=== PATIENT | male | born 1980 | race Caucasian/White ===

== ENCOUNTER 2017-10-25 20:28 | Emergency (ER) | payer MEDICAID ==
[~2017-10-25] VITALS: Ht 170.2 cm; Wt 95.3 kg
[2017-10-25 21:00] LABS: URINE BILIRUBIN NEGATIVE (Negative); URINE BLOOD NEGATIVE (Negative); URINE CLARITY CLEAR; URINE COLOR YELLOW; URINE GLUCOSE-RANDOM NEGATIVE (Negative); URINE KETONES NEGATIVE (Negative); URINE LEUKOCYTES-REFLEX NEGATIVE (Negative); URINE NITRITE-REFLEX NEGATIVE (Negative); URINE PROTEIN NEGATIVE (Negative); URINE SPECIFIC GRAVITY >= 1.030 (1.005-1.030); URINE UROBILINOGEN 0.2 E.U./dl (0.2-1.0)
[2017-10-25 21:07] LABS: HEMATOCRIT 42.1 % (42.0-52.0); HEMOGLOBIN 14.2 gm/dL (14.0-18.0); MCHC 33.7 g/dL (28.0-37.0); MCV 85.9 fL (80.0-100.0); MPV 7.2 fl. (7.2-11.1); NUCLEATED RBCS 0 /100WBC; PLATELET COUNT* 314 thou/uL (150-400); RDW-CV 13.9 % (10.5-14.5)
[2017-10-25 21:14] LABS: CALCIUM 8.8 mg/dL (8.5-10.1); CREATININE 1.1 mg/dL (0.6-1.3); POTASSIUM 3.8 mmol/L (3.5-5.1)
[2017-10-25 21:19] LABS: ALBUMIN 3.7 g/dL (3.4-5.0); TOTAL BILIRUBIN 0.3 mg/dL (<0.1-1.0); TOTAL PROTEIN 7.8 g/dL (6.4-8.2)
[2017-10-25 22:10] LABS: ABSOLUTE LYMPHOCYTES 0.6 thou/uL (0.8-5.3); ABSOLUTE MONOCYTES 0.7 thou/uL (0.0-1.2); ABSOLUTE NEUTROPHILS 8.7 thou/uL (1.6-8.1); ANISOCYTOSIS Occasional; PLATELET ESTIMATE ADEQUATE; TOXIC GRANULATION 1+
[2017-10-25] MEDS ORDERED: TRAMADOL 50 MG50 MG PO (22:49)
[2017-10-25] MEDS ORDERED: CIPRO500 M1 PO (22:49)
[2017-10-25] MEDS ORDERED: ONDANSETRON HCL4 M2 PO (22:49)
[2017-10-25 23:11] VITALS: BP 117/63
== END 2017-10-25 23:12 | disposition home or self-care (01) ==
LOC: M.ERS 20:28
PROVIDERS: Nurse Practitioner Family
DX: R10.30 Lower abdominal pain, unspecified (principal); N50.812 Left testicular pain; N50.811 Right testicular pain

== ENCOUNTER 2018-09-13 04:38 | Emergency (ER) | payer MEDICAID ==
[~2018-09-13] VITALS: Ht 170.2 cm; Wt 97.5 kg
[~2018-09-13 04:38] MED LIST: CIPRO500 M1 PO; ONDANSETRON HCL4 M2 PO; TRAMADOL 50 MG50 MG PO
[2018-09-13 05:27] LABS: URINE BILIRUBIN NEGATIVE (Negative); URINE BLOOD NEGATIVE (Negative); URINE CLARITY CLEAR; URINE COLOR YELLOW; URINE GLUCOSE-RANDOM NEGATIVE (Negative); URINE KETONES NEGATIVE (Negative); URINE LEUKOCYTES-REFLEX NEGATIVE (Negative); URINE NITRITE-REFLEX NEGATIVE (Negative); URINE PROTEIN NEGATIVE (Negative); URINE SPECIFIC GRAVITY 1.025 (1.005-1.030); URINE UROBILINOGEN 0.2 E.U./dl (0.2-1.0)
[2018-09-13] MEDS ORDERED: FAMCICLOVIR250 MG PO (05:30)
[2018-09-13] MEDS ORDERED: DOXYCYCLINE 10100 MG PO (05:30)
[2018-09-13 06:05] VITALS: BP 150/79
== END 2018-09-13 06:05 | disposition home or self-care (01) ==
LOC: M.ERS 04:38
PROVIDERS: Emergency Medicine Emergency Medical Services
DX: A60.01 Herpesviral infection of penis (principal); F17.210 Nicotine dependence, cigarettes, uncomplicated

== ENCOUNTER 2019-08-28 04:29 | Inpatient (IN) | payer MEDICAID ==
[~2019-08-28] VITALS: Ht 172.7 cm; Wt 116.8 kg
[~2019-08-28 04:29] MED LIST changes: +DOXYCYCLINE 10100 MG PO; +FAMCICLOVIR250 MG PO
[2019-08-28 04:36] VITALS: BP 151/86
[2019-08-28 04:51] LABS: URINE CLARITY CLEAR; URINE COLOR ORANGE
[2019-08-28 04:52] LABS: URINE GLUCOSE-RANDOM ND (Negative); URINE PROTEIN ND (Negative); URINE REDUCING SUBSTANCE NEGATIVE (Negative); URINE SPECIFIC GRAVITY 1.015 (1.005-1.030)
[2019-08-28 04:53] LABS: ACETEST (KETONE CONFIRMATORY) Negative (Negative); ICTOTEST (BILI CONFIRMATORY) Negative (Negative); URINE BILIRUBIN ND (Negative); URINE BLOOD ND (Negative); URINE KETONES ND (Negative); URINE LEUKOCYTES-REFLEX ND (Negative); URINE NITRITE-REFLEX ND (Negative); URINE UROBILINOGEN ND E.U./dl (0.2-1.0)
[2019-08-28 05:14] LABS: CASTS None Seen /LPF (None Seen); CRYSTALS None Seen /LPF (None Seen); MUCUS 4-6 Moderate strn/LPF (None Seen); SQUAMOUS 0-3 Few /LPF (0-3); URINE WBC-REFLEX 6-15 Few /HPF (0-5)
[2019-08-28 05:23] LABS: ABSOLUTE BASOPHILS 0.1 thou/uL (0.0-0.2); ABSOLUTE LYMPHOCYTES 1.1 thou/uL (0.8-5.3); ABSOLUTE MONOCYTES 1.2 thou/uL (0.0-1.2); ABSOLUTE NEUTROPHILS 11.8 thou/uL (1.6-8.1); BASOPHILS 0.4 %; EOSINOPHILS 0.2 %; HEMATOCRIT 40.7 % (42.0-52.0); HEMOGLOBIN 13.4 gm/dL (14.0-18.0); LYMPHOCYTES 7.9 %; MCH 28.4 pg (26.0-34.0); MONOCYTES 8.6 %; NUCLEATED RBCS 0 /100WBC; PLATELET COUNT* 262 thou/uL (150-400); POLYS 82.9 %; RBC 4.73 mil/uL (4.50-6.00); RDW-CV 14.2 % (10.5-14.5); WBC 14.2 thou/uL (4.0-11.0)
[2019-08-28 05:39] LABS: CALCIUM 8.4 mg/dL (8.5-10.1); CREATININE 1.2 mg/dL (0.6-1.3); POTASSIUM 3.8 mmol/L (3.5-5.1)
[2019-08-28 05:40] LABS: ALBUMIN 3.1 g/dL (3.4-5.0); TOTAL BILIRUBIN 0.5 mg/dL (<0.1-1.0); TOTAL PROTEIN 7.6 g/dL (6.4-8.2)
[2019-08-28 06:07] LABS: AMP/METHAMP POSITIVE (Negative); BARBITURATES Negative (Negative); BENZODIAZEPINES Negative (Negative); COCAINE Negative (Negative); METHADONE Negative (Negative); OPIATES Negative (Negative); PCP Negative (Negative); THC POSITIVE (Negative)
--- NOTE | 2019-08-28 09:06 | NUR ---
DURING ADMISSIONS ASSESSMENT PT HAD LARGE KNIFE IN HIS BAG. SECURITY CALLED TO SECURE KNIFE UNTIL DC
[2019-08-28 09:36] VITALS: BP 131/74
[2019-08-28 12:00] VITALS: BP 131/74
[2019-08-28 13:16] LABS: CHOLESTEROL 135 mg/dL (<200); HDL CHOLESTEROL 54 mg/dL (>40); LDL CHOLESTEROL 74 mg/dL (<100); TC:HDL 2.5 Ratio (Not establshd); TRIGLYCERIDE 37 mg/dL (<150); VLDL 7 mg/dL (<40)
[2019-08-28 13:17] LABS: SERUM ASSESSMENT Clear
[2019-08-28 16:39] VITALS: BP 114/68
--- NOTE | 2019-08-28 16:55 | NUR ---
PT UP FROM ED THIS AM .PT REPORTS INTERMITTENT RIB AND CHEST PAIN RELIEVED BY PAIN MEDS. IVF INFUSING. STACH ON MONITOR
[2019-08-28 19:50] VITALS: BP 116/71
[2019-08-29] VITALS: BP 107/63
[2019-08-29 03:05] LABS: GLYCOHEMOGLOBIN (HGB A1C) 5.8 % (4.8-5.6)
[2019-08-29 04:00] VITALS: BP 139/71
[2019-08-29 05:16] LABS: ABSOLUTE BASOPHILS 0.1 thou/uL (0.0-0.2); ABSOLUTE EOSINOPHILS 0.1 thou/uL (0.0-0.7); ABSOLUTE LYMPHOCYTES 0.9 thou/uL (0.8-5.3); ABSOLUTE NEUTROPHILS 9.5 thou/uL (1.6-8.1); BASOPHILS 0.5 %; EOSINOPHILS 0.4 %; HEMATOCRIT 37.9 % (42.0-52.0); HEMOGLOBIN 12.6 gm/dL (14.0-18.0); MCH 28.4 pg (26.0-34.0); MCHC 33.2 g/dL (28.0-37.0); MCV 85.4 fL (80.0-100.0); MONOCYTES 8.5 %; MPV 8.4 fl. (7.2-11.1); NUCLEATED RBCS 0 /100WBC; PLATELET COUNT* 234 thou/uL (150-400); POLYS 82.6 %; RBC 4.44 mil/uL (4.50-6.00); RDW-CV 14.2 % (10.5-14.5); WBC 11.5 thou/uL (4.0-11.0)
[2019-08-29 05:34] LABS: ALBUMIN 2.4 g/dL (3.4-5.0); CALCIUM 8.3 mg/dL (8.5-10.1); CREATININE 0.9 mg/dL (0.6-1.3); POTASSIUM 3.8 mmol/L (3.5-5.1); TOTAL BILIRUBIN 0.6 mg/dL (<0.1-1.0); TOTAL PROTEIN 6.7 g/dL (6.4-8.2)
--- NOTE | 2019-08-29 06:54 | NUR ---
RECEIVED REPORT AND ASSUMED CARE AT 1900. VSS. CARDIAC MONITORING IN PLACE. PT REPORTS PAIN, PRN MEDICATION PER EMAR. ASSESSMENT COMPLETED CHARTED. PT UP AD BRAD IN ROOM, RA. THROUGH NIGHT 02 SAT MID-HIGH 80'S. PT NOW ON 2L NC. BED LOCKED IN LOWEST POSITION, CALL LIGHT WITHIN REACH. HOURLY ROUNDING COMPLETED AND ALL NEEDS MET
[2019-08-29 08:00] VITALS: BP 144/87
[2019-08-29 11:55] VITALS: BP 115/67
--- NOTE | 2019-08-29 14:09 | NUR ---
ATTEMPTED TO MEET WITH PT, WAS SLEEPING. WILL TRY AGAIN
[2019-08-29 16:15] VITALS: BP 128/69
--- NOTE | 2019-08-29 17:02 | EKG ---
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 08/29/19 1702 [id number] Eric Wild MD, FACC /EPI
--- NOTE | 2019-08-29 17:41 | NUR ---
PT UP IN ROOM WITH STEADY GAIT. PT AFEBRILE. IVF INFUSING. PT REPORTS MARIN AND CHEST PAIN WITH COUGH. PT REPORTS FEELING BETTER TODAY. TOLERATING PO WELL.
[2019-08-29 19:30] VITALS: BP 140/75
--- NOTE | 2019-08-29 23:09 | NUR ---
ASSESSMENT DOCUMENTED. IV PATENT. PT REPORTED TO RT THAT HE WAS LEAVING. RT FOUND THIS NURSE. TALKED TO PT, PT STATED THAT HE WAS SICK OF BEING IN THE HOSPITAL AND WAS GOING TO LEAVE. PT EDUCATED ON RISKS OF LEAVING AMA, PT STATED UNDERSTANDING. AMA PAPER SIGNED. CHARGE NURSE AND NURSING SHOE CUTTER NOTIFIED.
--- NOTE | 2019-08-30 09:27 | EKG ---
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
== END 2019-08-29 20:55 | disposition left against medical advice (07) | DRG 871 ==
LOC: M.ERS 04:29 → M.2W 08:10 → M.TBA-ER 08:10 → M.2W 10:12
PROVIDERS: Emergency Medicine; ADMIT Internal Medicine
DX: A41.9 Sepsis, unspecified organism (principal); J18.1 Lobar pneumonia, unspecified organism; R65.20 Severe sepsis without septic shock; F12.90 Cannabis use, unspecified, uncomplicated; F17.210 Nicotine dependence, cigarettes, uncomplicated; R73.9 Hyperglycemia, unspecified; Z53.29 Procedure and treatment not carried out because of patient's decision for other reasons; Z82.49 Family history of ischemic heart disease and other diseases of the circulatory system; Z79.899 Other long term (current) drug therapy

== ENCOUNTER 2020-03-17 22:38 | Emergency (ER) | payer MEDICAID | END 2020-03-17 22:51 | disposition home or self-care (01) | LOC: M.ERS 22:38 | DX: F15.90 Other stimulant use, unspecified, uncomplicated (principal); F17.210 Nicotine dependence, cigarettes, uncomplicated; I25.2 Old myocardial infarction ==